=== PATIENT | male | born 1975 | race Caucasian/White ===

== ENCOUNTER → 2018-02-20 15:35 | Outpatient (CLI) | payer SELFPAY ==
[2018-02-20 17:39] LABS: AST(SGOT) 23 U/L (15-37); Alanine Aminotransfer ALT/SGPT 45 U/L (16-61); Alkaline Phosphatase 68 U/L (45-117); Bilirubin, Direct 0.11 mg/dL (0.00-0.30); Globulin 3.7 g/dL (2.2-4.2); Protein, Total 7.7 g/dL (6.4-8.2)
== END ==
PROVIDERS: Visit Provider Podiatrist Foot & Ankle Surgery
DX: B35.1 Tinea unguium (principal)
CPT/HCPCS: 36415; 80076

== ENCOUNTER → 2021-03-26 | Outpatient (CLI) | payer SELFPAY ==
--- NOTE | 2021-03-26 | IMM_PTH ---
PATIENT: CLARA POLANCO LOC: [facility] U#:[id number] AGE/SX: 46/M ROOM: RE03/26/[address]: Dr. Dustin Myers MD : 1975 BED: DIS: 03/26/2021 SPEC #: [id number] RECD: 03/30/21 13:38 STATUS: YOANDY REAndreas #: [id number] GIOVANNI: 03/26/21 00:[address]: Dustin Myers DEPT: IMMUNOHISTOCHEMISTRY RECD BY: Mariella Estrada ENTERED: 03/30/21 13:39 SP TYPE: IMMUNO OTHR DR: No Primary Care Phys Tissues: Skin of neck, NOS Procedures: CD31 (add) Vimentin (add) FACTOR VIII (add) Pankeratin (initial) MELAN-A (add) S-100 (add) PHYSICIAN & INSTITUTION [facility] [id number] SPECIMEN INFORMATION: Tissue Source: Neck lesion Clinical Info: Neck lesion Specimen Number: [id number] CPT code: 22834, 73158 x5 METHODOLOGY: Deparaffinized sections of prefer/formalin-fixed tissue or PAP/DQ stained slides are incubated with monoclonal/polyclonal antibodies/oligonucleotide probes. Localization is made via biotin free immunoperoxidase method. Appropriate controls are performed and reacted as expected. Results on target cell population are indicated in the following table: RESULTS: ANTIBODY / CLONE RESULT AE1-3 (AE1/AE3/PCK26) negative Vimentin (V9) negative CD31 (TATY/70A) positive Factor VIII (R Ag) positive Melan A (A103) negative S-100 (4C4.9) negative These tests were developed and their performance characteristics determined by [facility]. They may not have been cleared or approved by the U.S. Food and Drug Administration. The FDA has determined that such clearance or approval is not necessary. The above immunohistochemical/dualISH markers are ordered and reviewed by the Pathologist. INTERPRETATION: Skin lesion of neck, biopsy: Consistent with benign arteriovenous malformation. AM:ines 03/31/2021
--- NOTE | 2021-03-26 | LES_PTH ---
PATIENT: CLARA POLANCO LOC: [facility] U#:[id number] AGE/SX: 46/M ROOM: RE03/26/[address]: Dr. Dustin Myers MD : 1975 BED: DIS: 03/26/2021 SPEC #: [id number] RECD: 03/26/21 16:17 STATUS: YOANDY NAVYA #: [id number] GIOVANNI: 03/26/21 00:[address]: Dustin Myers DEPT: SURGICAL PATHOLOGY RECD BY: Branden Chow ENTERED: 03/27/21 16:36 SP TYPE: Lesion OTHR DR: No Primary Care Phys Tissues: Skin of neck, NOS Procedures: Elastin Stain (control) Special Stain Group II Surgery Specimen Level IV HEADER OPERATION: Neck lesion PRE-OP DIAGNOSIS: Neck lesion TISSUE SUBMITTED: Neck lesion MICROSCOPIC DIAGNOSIS Skin lesion of neck, biopsy: Consistent with benign arteriovenous malformation. See comment. AM:ines 03/30/2021 COMMENT Elastin stain with matched control was used in the evaluation of this case. Immunohistochemistry ([id number]) supports the above diagnosis. Case has been reviewed in consultation with Dr. Rodgers who concurs with the above diagnosis. IDC:SJ MICROSCOPIC DESCRIPTION Slides are reviewed. GROSS DESCRIPTION Received in fixative is one container labeled with the patient's name and designated neck lesion. The specimen consists of an irregular fragment of light to dark wyatt soft tissue measuring 0.6 x 0.2 x 0.1 cm. The specimen is totally submitted in one cassette. / AM:ines 03/29/21 TC:5 CPT: 34822, 23373
== END | disposition home or self-care (01) ==
LOC: LABSPEC 16:38
PROVIDERS: Referring Provider Otolaryngology; Visit Provider Otolaryngology
DX: L98.8 Other specified disorders of the skin and subcutaneous tissue (principal)
CPT/HCPCS: 88305; 88313; 88341; 88342

== ENCOUNTER → 2021-07-06 13:59 | Outpatient (CLI) | payer SELFPAY ==
--- NOTE | 2021-07-06 14:25 | RAD_ITS ---
STUDY: X-RAY CHEST REASON FOR EXAM: Male, 46 years old. COUGH TECHNIQUE: PA and lateral views of the chest. COMPARISON: None. FINDINGS: The lungs are clear and expanded. There is no demonstrated pleural abnormality. Normal size heart. Normal mediastinum and david. Normal visualized pulmonary arteries. Normal visualized aortic arch and descending thoracic aorta. Normal visualized thoracic spine. Normal visualized ribs, clavicles, and shoulders. There is no demonstrated abnormality of the visualized soft tissue structures of the upper abdomen. RAD/Chest PA and Lateral IMPRESSION: Normal x-ray examination of the chest. Electronically Signed: Preston Brown MD at 17:18 EST , Service support ,
== END ==
PROVIDERS: Referring Provider Otolaryngology; Visit Provider Otolaryngology
DX: R05.9 Cough, unspecified (principal)
CPT/HCPCS: 71046

== ENCOUNTER → 2022-09-03 | Outpatient (CLI) | payer OTHER, SELFPAY ==
[2022-09-03 08:31] LABS: Absolute Lymphocyte Count 2.04 X10^3/uL (0.83-4.51); Absolute Neutrophil Count 4.2 X10^3/uL (2.0-7.7); Basophil# 0.04 X10^3/uL; Basophil% 0.6 % (0-1); Eosinophil# 0.11 X10^3/uL; Eosinophils% 1.6 % (0-5); Hematocrit 43.2 % (40-54); Hemoglobin 14.4 g/dL (13.0-16.5); Lymphocyte # 2.04 X10^3/ul (0.83-4.51); Lymphocyte % 28.9 % (19-41); Mean Corp Hgb Conc 33.3 g/dL (32-36); Mean Platelet Vol. 10.4 fl (6.2-12.0); Monocyte# 0.69 X10^3/uL; Monocyte% 9.8 % (0-10); NRBC Flagged by Analyzer 0 % (0-5); Neutrophil # 4.15 X10^3/uL (2.7-7.7); Neutrophil % 58.7 % (47-70); Platelet Count 299 K/mm3 (150-450); RBC Distribution Width CV 13.6 % (11.6-14.6); RBC Distribution Width SD 45.1 fl (35.1-43.9); White Blood Count 7.1 K/mm3 (4.4-11.0)
[2022-09-03 09:19] LABS: AST(SGOT) 28 U/L (15-37); Alanine Aminotransfer ALT/SGPT 36 U/L (16-61); Albumin, Serum 3.7 g/dL (3.2-5.0); Alkaline Phosphatase 78 U/L (45-117); Anion Gap 5 (5-15); BUN 13 mg/dL (7-18); BUN/Creat Ratio 15.6 RATIO (10-20); Chloride 106 mmol/L (98-107); Cholesterol 234 mg/dL (200); Creatinine, Serum 0.83 mg/dL (0.70-1.30); EST Glomerular Filtration Rate 106 mL/min (>60); Est Glom Filt Rate - Afr Amer 128 mL/min (>60); Globulin 3.7 g/dL (2.2-4.2); Glucose 116 mg/dL (74-106); High Density Lipoprotein 65 mg/dL; Potassium 3.8 mmol/L (3.5-5.1); Protein, Total 7.4 g/dL (6.4-8.2); Sodium Level 137 mmol/L (136-145); Triglycerides 159 mg/dL; Very Low Density Lipoprotein 32 mg/dL (5-40)
== END | disposition home or self-care (01) ==
LOC: LAB 07:20
PROVIDERS: PCP Family Medicine; Referring Provider Family Medicine; Visit Provider Family Medicine
DX: Z00.00 Encounter for general adult medical examination without abnormal findings (principal); F17.200 Nicotine dependence, unspecified, uncomplicated
CPT/HCPCS: 36415; 80053; 80061; 85025

== ENCOUNTER 2023-01-02 07:27 | Day surgery (SDC) | payer OTHER, SELFPAY ==
--- NOTE | 2023-01-02 07:37 | HP.PCM_ITS ---
[facility] General Date of Service: 01/02/23 Chief Complaint: Screening colonoscopy [facility] Narrative CLARA POLANCO, is a 47 M who presents today for screening colonoscopy. He has past medical history of mild gastroesophageal reflux disease and seasonal allergies. He does not have any problems with his bowels. He denies any nausea, vomiting or diarrhea. He denies any bleeding per rectum. He denies any chest pain or shortness of breath. Overall is in fairly good health. [facility] Medical History (Updated 12/28/22 @ 15:32 by Janelle Adams) Alcohol use Gastric reflux Seasonal allergies Smoker Wears glasses Home Medications acetaminophen 325 mg tablet (Tylenol) 650 mg PO Q6H PRN Pain 12/28/22 [History Last Taken Unknown] omeprazole 40 mg capsule,delayed release 40 mg PO QHS 12/28/22 [History Last Taken Unknown] hzxtshdwxtrve-adhpoaejnbhwx-ohtsjwptxzr 5 mg-325 mg-200 mg tablet (Sinus Congestion and Pain (guaifenesin)) 2 tab PO Q4H PRN ALLERGIES 12/28/22 [History Last Taken Unknown] triamcinolone acetonide 55 mcg nasal spray aerosol (Nasacort Allergy) 1 spray intranasal DAILY 12/28/22 [History Last Taken Unknown] Allergy/AdvReac Type Severity Reaction Status Date / Time No Known Allergies Allergy Verified 12/28/22 15:25 Family History (Updated 10/12/22 @ 10:05 by Allyn Tang) Father Diabetes Hypertension Surgical History (Updated 12/28/22 @ 15:32 by Janelle Adams) History of vasectomy Social History (Updated 10/12/22 @ 10:08 by Allyn Tang) household members: spouse current occupational status: employed Smoking Status: Current every day smoker tobacco type: cigarettes ROS Review of Systems ROS Unobtainable: other Constitutional Constitutional: Denies fatigue, fever(s), poor appetite, weight gain or weight loss ENT HEENT: Denies mouth lesions Cardiovascular Cardiovascular: Denies abdominal bloating, abdominal edema or abdominal pain Respiratory/Chest Respiratory/Chest: Denies change in mental status, change in phlegm color, chest congestion or chest tightness Gastrointestinal Gastrointestinal: Denies belching, bloating, change in bowel habits, change in stool character, chewing difficulty, coffee ground emesis, constipation, cramping, diarrhea, dyspepsia, dysphagia, early satiety, excessive flatus, fecal incontinence, heartburn, hematemesis, hematochezia, hemorrhoids, loose stools, melena, nausea, odynophagia, rectal bleeding, tenesmus, vomiting or weight changes Genitourinary Genitourinary: Denies abdominal discomfort, burning urination or itching Musculoskeletal Musculoskeletal: Reports as per HPI; Denies muscle weakness or myalgias Integumentary Integumentary: Denies jaundice Neurologic Neurologic: Denies lack of coordination or weakness Psychiatric Psychiatric: Denies confusion, depression, memory loss, mood swings, paranoia or suicidal ideation Endocrine Endocrinology: Denies systems reviewed and no addt'l complaints, except as documented Hematologic/Lymphatic Hematologic/Lymphatic: Denies anemia, easy bleeding, easy bruising or lymphadenopathy Allergic/Immunologic Allergic/Immunologic: Denies systems reviewed and no addt'l complaints, except as documented Physical Exam Const alert General Appearance: cooperative Orientation / Consciousness: oriented to person HEENT hearing grossly normal bilaterally Head and Scalp: normal to inspection Face and Sinus: face symmetric Nose: external nose normal Mouth: oral and palatal mucosa normal Eyes conjunctivae normal General Eye: normal appearance of both eyes Neck full ROM General: normal visual inspection Lymph Lymphatic: no lymphadenopathy noted Chest inspection of chest normal and palpation of chest normal Chest: symmetrical chest wall rise Resp normal respiratory effort Effort and Inspection: able to speak in complete sentences Cardio regular rate GI non-distended Percussion: normal to percussion Rectal Exam: deferred Neuro Speech: speech normal Gait (Neuro): normal gait Assessment & Plan Assessment/Plan (1) Encounter for screening for malignant neoplasm of colon: PLAN: He was explained alternatives, risk, benefits including not withstanding bleeding, infection, sepsis, perforation, need for emergent and . He will have an ASA of 1.
[2023-01-02 07:54] VITALS: BP 127/87; PULSE 77; RESP 16; TEMP 36.5; O2SAT 98; BMI 29.4
[2023-01-02] MEDS: Lactated Ringers 1,000 ML 15 ML IV (07:58)
[2023-01-02 09:21] VITALS: BP 111/70; BP 127/87; PULSE 80; RESP 16; TEMP 36.4; O2SAT 97
--- NOTE | 2023-01-02 09:21 | OP.COLON_ITS ---
Patient Name: Salvador Terrell Procedure Date: 01/02/2023 8:58 AM Date of : 1975 Age: 47 Procedure: Colonoscopy Indications: Screening for colorectal malignant neoplasm Providers: Ernst Shen DO Referring MD: Jackelyn Morrow Medicines: Monitored Anesthesia Care Patient Profile: This is a 47 year old male. Refer to note in patient chart for documentation of history and physical. Last Colonoscopy: none. The patient's first colonoscopy is today. Complications: No immediate complications. Procedure: Pre-Anesthesia Assessment: - Prior to the procedure, a History and Physical was performed, and patient medications and allergies were reviewed. The risks and benefits of the procedure and the sedation options and risks were discussed with the patient. All questions were answered and informed consent was obtained. Patient identification and proposed procedure were verified by the physician. Mental Status Examination: normal. Prophylactic Antibiotics: The patient does not require prophylactic antibiotics. Prior Anticoagulants: The patient has taken no previous anticoagulant or antiplatelet agents. After reviewing the risks and benefits, the patient was deemed in satisfactory condition to undergo the procedure. The anesthesia plan was to use monitored anesthesia care (MAC). Immediately prior to administration of medications, the patient was re-assessed for adequacy to receive sedatives. The heart rate, respiratory rate, oxygen saturations, blood pressure, adequacy of pulmonary ventilation, and response to care were monitored throughout the procedure. The physical status of the patient was re-assessed after the procedure. After I obtained informed consent, the scope was passed under direct vision. Throughout the procedure, the patient's blood pressure, pulse, and oxygen saturations were monitored continuously. The colonoscope was introduced through the anus and advanced to the terminal ileum. The colonoscopy was performed without difficulty. The patient tolerated the procedure well. The quality of the bowel preparation was adequate. Scope In: 9:07:39 AM Scope Withdrawal Time 0 hours 7 minutes 47 seconds Scope Out: 9:17:15 AM Total Procedure Duration Time 0 hours 9 minutes 36 seconds Findings: The perianal and digital rectal examinations were normal. The colon (entire examined portion) appeared normal. No additional abnormalities were found on retroflexion. Impression: - The entire examined colon is normal. - No specimens collected. Recommendation: - Discharge patient to home. - Resume previous diet. - Continue present medications. - Repeat colonoscopy in 10 years for screening purposes. Procedure Code(s): --- Professional --- G0121, Colorectal cancer screening; colonoscopy on individual not meeting criteria for high risk CPT copyright 2017 [employer]. All rights reserved. The codes documented in this report are preliminary and upon food and beverage outlets manager review may be revised to meet current compliance requirements. Ernst Shen DO 01/02/2023 9:20:47 AM This report has been signed electronically. Number of Addenda: 0 Note Initiated On: 01/02/2023 8:58 AM
--- NOTE | 2023-01-02 09:22 | OP.CCLET_ITS ---
01/02/2023 Jackelyn Morrow [place] [facility] [id number] [address] Re : Colonoscopy procedure for Salvador Terrell Dear Dr. Morrow This procedure was performed on Monday, January 02, 2023. My impressions and recommendations are as follows: Impressions : - The entire examined colon is normal. - No specimens collected. Recommendations : - Discharge patient to home. - Resume previous diet. - Continue present medications. - Repeat colonoscopy in 10 years for screening purposes. My findings are described in the full procedure note, which is enclosed. If I can be of further assistance, please feel free to contact me at . Sincerely, Ernst Shen, 01/02/2023 9:20:47 AM This report has been signed electronically.
[2023-01-02 09:26] VITALS: BP 104/70; BP 127/87; PULSE 82; RESP 16; O2SAT 95
[2023-01-02 09:30] VITALS: BP 108/78; BP 127/87; PULSE 73; RESP 16; O2SAT 97
[2023-01-02 09:35] VITALS: BP 125/84; BP 127/87; PULSE 78; RESP 16; TEMP 36.6; O2SAT 98
[2023-01-02 09:45] VITALS: BP 127/87
== END 2023-01-02 09:47 | disposition home or self-care (01) ==
LOC: EN 07:27 → AC 07:31
PROVIDERS: PCP Family Medicine; Referring Provider Family Medicine; Visit Provider Internal Medicine Gastroenterology
PROC: 0DJD8ZZ Inspection of Lower Intestinal Tract, Via Natural or Artificial Opening Endoscopic (ICD-10-PCS; CPT 45378; principal; 2023-01-02 08:40)
DX: Z12.11 Encounter for screening for malignant neoplasm of colon (principal); K21.9 Gastro-esophageal reflux disease without esophagitis; F17.210 Nicotine dependence, cigarettes, uncomplicated; Z79.899 Other long term (current) drug therapy
CPT/HCPCS: 45378; J7120; J2405

== ENCOUNTER → 2024-11-02 | Outpatient (CLI) | payer OTHER, SELFPAY ==
[2024-11-02 09:48] LABS: Absolute Lymphocyte Count 2.14 X10^3/uL (0.83-4.51); Absolute Neutrophil Count 3.6 X10^3/uL (2.0-7.7); Basophil# 0.04 X10^3/uL; Basophil% 0.6 % (0-1); Eosinophil# 0.13 X10^3/uL; Hematocrit 40.9 % (40-54); Hemoglobin 14.3 g/dL (13.0-16.5); Lymphocyte # 2.14 X10^3/ul (0.83-4.51); Lymphocyte % 32.3 % (19-41); Mean Corpuscular Hgb 31.4 pg (27.0-32.0); Mean Corpuscular Volume 89.7 fL (80-94); Mean Platelet Vol. 10.4 fl (6.2-12.0); Monocyte# 0.61 X10^3/uL; Monocyte% 9.2 % (0-10); NRBC Flagged by Analyzer 0 % (0-5); Neutrophil # 3.63 X10^3/uL (2.7-7.7); Neutrophil % 54.7 % (47-70); Platelet Count 270 K/mm3 (150-450); RBC Distribution Width CV 13.9 % (11.6-14.6); Red Blood Count 4.56 M/mm3 (4.6-6.2); White Blood Count 6.6 K/mm3 (4.4-11.0)
[2024-11-02 10:12] LABS: ALB/GLOB Ratio 1.2 RATIO (0.9-2.4); AST(SGOT) 31 U/L (<=37); Alanine Aminotransfer ALT/SGPT 30 U/L (<=46); Albumin, Serum 4.3 g/dL (3.5-5.0); Alkaline Phosphatase 84 U/L (40-129); Anion Gap 12 (5-15); BUN 12 mg/dL (4-19); BUN/Creat Ratio 15.5 RATIO (10-20); Carbon Dioxide 24.7 mmol/L (21.0-32.0); Chloride 101 mmol/L (98-108); Cholesterol 250 mg/dL (<=200); Creatinine, Serum 0.76 mg/dL (0.70-1.20); EST Glomerular Filtration Rate 111 (>60); Globulin 3.5 g/dL (2.2-4.2); Glucose 107 mg/dL (70-99); High Density Lipoprotein 66 mg/dL; Low Density Lipoprotein Calc. 138 mg/dL; Potassium 4.1 mmol/L (3.3-5.1); Protein, Total 7.8 g/dL (5.9-8.4); Sodium Level 137 mmol/L (133-145); Total Bilirubin 0.69 mg/dL (0.00-1.30); Triglycerides 229 mg/dL; Very Low Density Lipoprotein 46 mg/dL (5-40); cholesterol:hdl ratio screen 3.79
== END | disposition home or self-care (01) ==
LOC: LAB 08:28
PROVIDERS: PCP Family Medicine; Referring Provider Family Medicine; Visit Provider Family Medicine
DX: Z00.00 Encounter for general adult medical examination without abnormal findings (principal); F17.200 Nicotine dependence, unspecified, uncomplicated; Z83.3 Family history of diabetes mellitus
CPT/HCPCS: 36415; 80053; 80061; 85025

== ENCOUNTER → 2025-05-01 | Outpatient (CLI) | payer OTHER, SELFPAY ==
--- NOTE | 2025-05-01 12:30 | RAD_ITS ---
PROCEDURE: CHEST PA AND LATERAL 05/01/2025 REASON FOR EXAM: COUGH, SMOKERS TECHNIQUE: Procedure Code: RADCXR Modality: DX Procedure: CHEST PA AND LATERAL COMPARISON: None. RAD/Chest PA and Lateral IMPRESSION: The lateral view is limited by patient motion. Lungs appear clear throughout. No pleural effusion or pneumothorax is noted. The cardiomediastinal silhouette is within the normal range. Mild thoracic spine degenerative changes are seen. No acute osseous change is evident. Reading Location: [id number]
--- NOTE | 2025-05-01 12:30 | RAD_ITS ---
PROCEDURE: CHEST PA AND LATERAL 05/01/2025 REASON FOR EXAM: COUGH, SMOKERS TECHNIQUE: Procedure Code: RADCXR Modality: DX Procedure: CHEST PA AND LATERAL COMPARISON: None. RAD/Chest PA and Lateral IMPRESSION: The lateral view is limited by patient motion. Lungs appear clear throughout. No pleural effusion or pneumothorax is noted. The cardiomediastinal silhouette is within the normal range. Mild thoracic spine degenerative changes are seen. No acute osseous change is evident. Reading Location: [id number]
== END | disposition home or self-care (01) ==
LOC: PSN 12:25
PROVIDERS: PCP Family Medicine; Referring Provider Family Medicine; Visit Provider Family Medicine
DX: J44.9 Chronic obstructive pulmonary disease, unspecified (principal)
CPT/HCPCS: 71046; 94060; 94726; 94729

== ENCOUNTER → 2025-05-02 | Outpatient (CLI) | payer OTHER, SELFPAY | END | disposition home or self-care (01) | LOC: SL 19:51 | PROVIDERS: PCP Family Medicine; Referring Provider Family Medicine; Visit Provider Family Medicine | DX: G47.33 Obstructive sleep apnea (adult) (pediatric) (principal) | CPT/HCPCS: 95810 ==